=== PATIENT | female | born 1935 | race Caucasian/White ===

== ENCOUNTER → 2016-12-30 | Day surgery (SDC) | payer MEDICARE ==
[~2016-12-30] MED LIST: ALLO300T PO; BUPIVAC MPF-EPI 0.5%-1:200000 30 ML VIAL. ONE; CA C1TAB28 PO; DEXAMETHASONE SOD PHOS 20 MG/5 ML VIAL. ONE; FURO20TA3 PO; HYDR-971 PO; HYDROmorphone 2 MG/ML VIAL IV PRN; Hydrocodone/Acetaminophen PO; IV RINGERS,LACTATED 1000ML 1,000 ML IV SCH; LIDOCAINE 1% PF 2 ML VIAL. ID PRN; LIDOCAINE 1%/EPI 1:100,000 20 ML VIAL. ONE; LIDOCAINE 2% PF Vial for OR 5 ML VIAL. ONE; LISI10TA2 PO; MAGN1TAB PO; METO50TA2 PO; MORPHINE SULFATE 4 MG/ML DISP.SYRIN. IV PRN; MULT-658 PO; OMEG500C PO; OMEP40CA5 PO; ONDANSETRON PF 4 MG/2 ML VIAL. IV PRN; ONDANSETRON PF 4 MG/2 ML VIAL. ONE; OS CAL; PROCHLORPERAZINE 10 MG/2 ML VIAL. IV PRN; PROPOFOL 20 ML IV ONE; RANI75TA95 PO; SUCR1TAB PO; VITAMIN B 12; [UNRECOGNIZED DRUG - OTHER] PO; fentaNYL PF VIAL 100 MCG/2 ML VIAL IV PRN; fentaNYL PF VIAL 100 MCG/2 ML VIAL ONE
--- NOTE | 2016-12-30 11:42 | PDOC4 ---
Operative Note Operative Note Operative Note: Preoperative Diagnosis: Left breast mass Postoperative Diagnosis: Same Procedure: Left breast biopsy Surgeon: Sonu Anesthesia: Local MAC EBL: 10 mL Specimen: Left breast biopsy to pathology Drains: None Complications: None Indication: The patient is an 81-year-old female who was referred for an abnormality noted in her left breast. Physical examination identifies a thickened area with apparent involvement of the skin in the lateral upper quadrant. However no clear target is identified radiographically and therefore a radiographic core needle biopsy could not be performed. Due to the palpable abnormality we plan for a surgical left breast biopsy. The details of surgery were discussed with the patient. The risks include bleeding, infection, pain, scar tissue, potential need for additional surgery or procedure. She understands and would like to proceed. Description: The patient was taken to the operating room and placed supine on the operating table. Monitored anesthesia care was provided. The left breast was prepped with ChloraPrep and draped in a standard surgical manner. The area in question was located in the lateral aspect of the breast near the 2 to 3 o' clock position fairly close to the axilla. The involved skin was infiltrated with 1% lidocaine with epinephrine. An elliptical incision was made including a portion of the skin with a 15 blade scalpel. Sharp dissection was carried down into the breast parenchyma. A leather goods sales representative portion of the involved tissue was mobilized from the surrounding tissue with sharp dissection. The biopsy specimen was fully excised and sent to pathology for evaluation. Several small bleeding points were controlled with cautery. Hemostasis was then good. The skin was closed with a 4-0 Monocryl suture. A sterile OpSite dressing was then applied. The patient tolerated the procedure well and was sent to the recovery room in stable condition. At the end of the case all counts were correct. FABIAN PASCUAL MD Dec 30, 2016 11:42
--- NOTE | 2016-12-30 11:44 | DISCH ---
DISCHARGE INSTRUCTIONS Condition on Discharge Condition on Discharge: Stable Activity After Discharge Activity Instructions for Disc: Resume previous activity, Other, see below Diet after Discharge Diet after Discharge: Regular Wound Incision Care Wound/Incision Care: Other, see below (keep dressing clean and dry) Follow-Up Follow up with: Dr Pascual in 1 week in office, call for appt [phone] FABIAN PASCUAL MD Dec 30, 2016 11:44
[2016-12-30 12:20] VITALS: BP 120/52
--- NOTE | 2017-01-01 10:14 | PATHOLOGY ---
PATHOLOGY REPORT * * * * * * * * FINAL DIAGNOSIS: Skin and subcutaneous tissue, left breast biopsy: - INVASIVE LOBULAR CARCINOMA. SEE COMMENT. - TUMOR INVOLVEMENT OF DEEP AND SIDE MARGINS OF BIOPSY. - TUMOR INVASION OF DEEP AND MID DERMIS OF OVERLYING SKIN. COMMENT: Sections of the left breast biopsy reveal skin and subcutaneous tissue. There is extensive infiltrating carcinoma involving the subcutaneous tissue. The tumor cells are relatively small, and are arranged in cords which infiltrate the fibrous stroma and adipose tissue. The tumor cells have scanty amounts of pale cytoplasm, and possess rounded to ovoid mildly pleomorphic hyperchromatic nuclei containing small nucleoli. Some of the tumor cells have a signet-ring cell appearance. The tumor focally infiltrates the deep and mid dermis of the overlying skin. There is no lymphovascular tumor invasion or tumor involvement of skin lymphatics. The morphologic findings are supportive of the diagnosis of an invasive lobular carcinoma with involvement of skin. Breast prognostic studies will be obtained, the results of which will be reported separately. The case is also examined by Dr. Srikanth Lea, who concurs with the diagnosis. The results are telephoned to Dr. Ascencio on 01/01/17 at 9:30 am. (JPM:; 12/31/2016) REPORT ELECTRONICALLY SIGNED BY: Greg Bueno M.D. DATE/TIME: 01/01/2017 10:13 * * * * * * * * GROSS PATHOLOGY: The specimen is received in formalin, labeled "Jose Crews and left breast biopsy", is an un-oriented roughly elliptical greco-white skin 2.8 x 0.7cm with underlying attached yellow lobulated fibroadipose tissue 1.8 x 1.7 x 1.0 cm. The margins are inked black, serially sectioned into 8 pieces to show predominantly a yellow lobulated cut surface with a 0.6 x 0.5 x 0.3 cm hemorrhagic area abutting the inked. Entirely submitted in four cassettes. A1-3: Central portion of specimen and A4 tips. Time surgically removed:111 on 12/30/16, time placed in formalin:1110 on 12/30/16, time of fixation: 10 hours 40 minutes. (SWS; 12/30/2016) INITIAL CPT CODE(S): A; 15780, 03837(4) Professional services performed by [facility] at [place] [id number] Technical services performed by [facility] at [address] [place] [address], [address], [place] [address]. SPECIMEN(S) RECEIVED: A.Left breast biopsy CLINICAL HISTORY: Left breast mass PATIENT: JOSE CREWS /AGE: 910/18/1935 (Age: 81) PATIENT #: [id number] ALT CASE #: SPECIMEN COLLECTION DATE: 12/30/2016 SPECIMEN RECEIVED DATE: 12/30/2016 [facility] - [address] [place] [address] - PHONE: [phone] * * * END OF REPORT * * *
== END | disposition home or self-care (01) ==
LOC: SURG 09:13
PROVIDERS: ATTEND Surgery
DX: N63.22 Unspecified lump in the left breast, upper inner quadrant (principal); I10 Essential (primary) hypertension; K21.9 Gastro-esophageal reflux disease without esophagitis; Z90.710 Acquired absence of both cervix and uterus; Z86.69 Personal history of other diseases of the nervous system and sense organs; Z88.0 Allergy status to penicillin; Z88.2 Allergy status to sulfonamides; Z91.011 Allergy to milk products
CPT/HCPCS: 19120; C1769; J0690; J1100; J2704; J3010; J3490; J2405; J2001

== ENCOUNTER 2017-01-22 08:56 | Observation (INO) | payer MEDICARE ==
[~2017-01-22] VITALS: Ht 175.3 cm; Wt 73.5 kg
[2017-01-22] VITALS (12 sets, daily range): BP systolic 105–144; BP diastolic 51–68
[~2017-01-22 08:56] MED LIST changes: -BUPIVAC MPF-EPI 0.5%-1:200000 30 ML VIAL. ONE; -DEXAMETHASONE SOD PHOS 20 MG/5 ML VIAL. ONE; -LIDOCAINE 1%/EPI 1:100,000 20 ML VIAL. ONE; -LIDOCAINE 2% PF Vial for OR 5 ML VIAL. ONE; -METO50TA2 PO; +METO50TA6 PO; +MORPHINE SULFATE 2 MG/ML DISP.SYRIN. IV PRN; -MORPHINE SULFATE 4 MG/ML DISP.SYRIN. IV PRN; -ONDANSETRON PF 4 MG/2 ML VIAL. ONE; -PROPOFOL 20 ML IV ONE; -fentaNYL PF VIAL 100 MCG/2 ML VIAL ONE
[2017-01-22] MEDS ORDERED: LIDOCAINE 2% PF Vial for OR 5 ML VIAL. ONE (09:11)
[2017-01-22] MEDS ORDERED: DEXAMETHASONE SOD PHOS 20 MG/5 ML VIAL. ONE (09:11)
[2017-01-22] MEDS ORDERED: ONDANSETRON PF 4 MG/2 ML VIAL. ONE (09:11)
[2017-01-22] MEDS ORDERED: PROPOFOL 20 ML IV ONE (09:11)
[2017-01-22] MEDS ORDERED: fentaNYL PF VIAL 100 MCG/2 ML VIAL ONE (09:11)
[2017-01-22] MEDS ORDERED: LIDOCAINE 1% / SOD BICARB 8.4% 20 ML VIAL. IJ ONE (09:15)
[2017-01-22] MEDS: IV RINGERS,LACTATED 1000ML 1,000 ML IV SCH ×2 (09:29→17:29)
[2017-01-22] MEDS ORDERED: LIDOCAINE 1% PF 2 ML VIAL. ID PRN (09:30)
[2017-01-22] MEDS ORDERED: fentaNYL PF VIAL 100 MCG/2 ML VIAL IV PRN ×2 (09:30)
[2017-01-22] MEDS ORDERED: MIDAZOLAM HCL/PF 2 MG/2 ML VIAL. IV PRN (09:30)
[2017-01-22] MEDS ORDERED: ISOSULFAN BLUE 50 MG/5 ML VIAL. SQ ONE (10:44)
[2017-01-22] MEDS ORDERED: ePHEDrine PF IN SALINE 50 MG/5 ML DISP.SYRIN IV ONE (11:35)
[2017-01-22] MEDS ORDERED: SEVOFLURANE > 120 MINUTES. IH ONE (12:05)
--- NOTE | 2017-01-22 12:30 | RAD ---
Indication: Left breast cancer. Procedure: Procedure was discussed with the patient. All questions were answered. Written consent to proceed was obtained. Timeout procedure was performed. Patient was prepped and draped in the usual manner. 4 periareolar dermal injections of filtered sulfur colloid mixed with buffered lidocaine were injected. Total dose of the 4 injections was 1 mCi. Patient was transferred to the operative suite prior to any imaging. Lymphoscintigraphy was for surgical planning purposes. Impression: Lymphoscintigraphy performed without complication.
[2017-01-22] MEDS: IV 1/2 NORMAL SALINE 1,000 ML IV SCH (13:12)
[2017-01-22] MEDS ORDERED: HYDROmorphone 2 MG/ML VIAL IV PRN (13:15)
[2017-01-22] MEDS ORDERED: ONDANSETRON PF 4 MG/2 ML VIAL. IV PRN (13:15)
[2017-01-22] MEDS ORDERED: HYDROcodone/APAP 5/325MG 1 TAB TABLET PO PRN ×2 (13:15)
[2017-01-22] MEDS ORDERED: 0.9 % SODIUM CHLORIDE 10 ML DISP.SYRIN. IV PRN (13:15)
--- NOTE | 2017-01-22 13:21 | PDOC4 ---
Operative Note Operative Note Operative Note: Preoperative Diagnosis: Left breast cancer Postoperative Diagnosis: Same Procedure: Left simple mastectomy with sentinel lymph node biopsy Surgeon: Sonu Wood Boring Machine Operator: Ewelina VARELA Anesthesia: Gen. EBL: 50 mL Specimen: Left sentinel lymph nodes 1 through 3 to pathology, left breast stitch at 12:00 to pathology Drains: 19 Khmer round Abhijeet drain to chest wall Complications: None Indication: The patient is an 81-year-old female who is referred due to a left breast mass. A biopsy confirmed invasive adenocarcinoma. In discussing surgical treatment the patient strongly prefers a complete mastectomy and has no desire for breast conservation. We plan to include a sentinel lymph node biopsy with this as well and she is aware of the possibility of needing an axillary dissection. The risks of surgery were discussed which include bleeding , infection, pain, scar tissue, wound healing problems, anesthetic risk, potential need for additional surgery or procedure. She understands and would like to proceed. Description: The patient was taken to the operating room and placed supine on the operating table. Gen. anesthesia was performed. The left breast and axilla were prepped with ChloraPrep and draped in a standard surgical manner. 5 mL of Lymphazurin were injected deep to the nipple areolar complex. Several minutes were allowed to elapse. An elliptical tracing was made with a marker around the nipple areolar complex extending from the medial chest to the axilla. The superior lateral aspect of this marking was then opened with a scalpel. Cautery dissection was carried down in the axilla. There was initially 2 areas of marked increased nuclear uptake both corresponding to blue staining lymph nodes thereby representing sentinel nodes. Both were readily harvested and sent to pathology for evaluation. There was one additional area of increased nuclear uptake somewhat more superiorly. This was also readily identified and corresponded to a node that did not stain blue. This was also harvested and sent as a sentinel lymph node. Apart from some background activity there were no other areas of marked increased nuclear uptake. There were no other blue staining nodes and no abnormal palpable lymphadenopathy. Frozen section evaluation of all nodes was negative for metastasis. The incision was then completed with a scalpel along the previous marking. Cautery dissection was used to develop both the superior and inferior skin flaps. The superior flap was developed first freeing the skin from the deeper breast parenchyma. This was carried to the level just below the clavicle. In a similar manner the inferior flap was mobilized which included the inframammary fold. In a medial to lateral fashion the breast was taken off of the chest wall with cautery. Several small blood vessels were readily controlled with cautery and a few larger vessels were ligated with 2-0 Vicryl. The breast was then completely excised and a stitch was used to rachele the 12 o'clock position. The specimen was sent to pathology. A few remaining bleeding spots were controlled with cautery. Hemostasis was then good and no other gross abnormalities were seen. A 19 Khmer round Abhijeet drain was left in the chest wall with an exit site fairly. This was secured to the skin with 2-0 silk. The subcutaneous tissue was closed with interrupted 3-0 Vicryl. The skin was then approximated with a 4-0 Monocryl suture. A sterile OpSite dressing was then applied. The patient tolerated the procedure well and was sent to the recovery room in stable condition. At the end of the case all counts were correct. FABIAN PASCUAL MD Jan 22, 2017 13:21
[2017-01-22] MEDS: LISINOPRIL 10 MG TABLET PO SCH (14:00)
[2017-01-22] MEDS: ALLOPURINOL 300 MG TABLET. PO SCH (14:00)
[2017-01-22] MEDS: fentaNYL PF VIAL 100 MCG/2 ML VIAL IV PRN ×2 (14:03→14:08)
[2017-01-22] MEDS: PANTOPRAZOLE 40 MG TABLET.DR. PO SCH (16:30)
[2017-01-23 03:00] VITALS: BP 103/49
[2017-01-23] MEDS: IV 1/2 NORMAL SALINE 1,000 ML IV SCH (03:27)
[2017-01-23 07:00] VITALS: BP 114/53
[2017-01-23] MEDS: ALLOPURINOL 300 MG TABLET. PO SCH (08:51)
[2017-01-23] MEDS: PANTOPRAZOLE 40 MG TABLET.DR. PO SCH (08:51)
[2017-01-23] MEDS: LISINOPRIL 10 MG TABLET PO SCH (08:52)
[2017-01-23 11:00] VITALS: BP 120/49
--- NOTE | 2017-01-23 11:22 | PDOC ---
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
--- NOTE | 2017-01-24 13:31 | PDOC3 ---
Discharge Summary Visit Information Date of Admission: Jan 22, 2017 Date of Discharge: Jan 23, 2017 Admitting Diagnosis: Left breast cancer Final Diagnosis Left breast cancer Brief Hospital Course Allergies Allergies Coded Allergies Type Severity Reaction Last Updated Verified Sulfa (Sulfonamide Antibiotics) Allergy Intermediate Rash 01/22/17 Yes milk Adverse Reaction Intermediate UPSET STOMACH 01/22/17 Yes Vital Signs Vital Signs Date Time Temp Pulse Resp B/P (MAP) Pulse Ox O2 Delivery O2 Flow Rate FiO2 01/23/17 11:00 97.5 75 16 120/49 (72) 96 Room Air 97.5 Brief Hospital Course Ms. Crews is a 81 old female who presented with left breast cancer and underwent Left simple mastectomy with sentinel lymph node biopsy. Postoperatively her pain was controlled, she was ambulating, and tolerating a diet. She is ready for discharge home. Discharge Information Condition at Discharge: Stable Follow Up: Weeks (1) Disposition/Orders: D/C to Home Scheduled Allopurinol (Allopurinol), 300 MG PO DAILY, (Reported) Lisinopril (Lisinopril), 1 TAB PO DAILY, (Reported) Multivits-Min/Fa/Lycopene/Lut (Centrum Silver Tablet), 1 EACH PO DAILY, ( Reported) Omeprazole (Omeprazole), 1 CAP PO DAILY, (Reported) [Os Jim], DAILY, (Reported) [Vitamin B 12], DAILY, (Reported) [vitamin eye health], 1 TAB PO DAILY, (Reported) Scheduled PRN Hydrocodone/Apap 5-325 (Thorp 5-325 Tablet), 1 TAB PO PRN Q6HRS PRN for PAIN, ( Reported) Miscellaneous Medications Ca Cmb No.1/Vit D3/B-6/Fa/B12 (Vitamin D3 1,000 Unit Tablet), 1 EACH PO, ( Reported) Stella-3 Fatty Acids (Fish Oil), 500 MG PO, (Reported) 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
--- NOTE | 2017-01-27 14:24 | PATHOLOGY ---
PATHOLOGY REPORT * * * * * * * * FINAL DIAGNOSIS: A. Lymph node, sentinel lymph node #1: - Negative for tumor (0/1). B. Lymph node, sentinel lymph node #2: - Negative for tumor (0/1). C. Lymph node, sentinel lymph node #3: - Rare isolated tumor cell identified. D. Breast and focal attached skeletal muscle tissue, left mastectomy: - INVASIVE LOBULAR CARCINOMA, FORMING AN ILL DEFINED WIDELY INFILTATIVE TUMOR MASS INVOLVING THE WALL OF THE PREVIOUS BIOPSY SITE, OUTER BREAST, 6:00 REGION OF BREAST, SUBAREOLAR BREAST, AND UPPER INNER QUADRANT. SEE COMMENT AND SYNOPTIC REPORT. - Focal tumor infiltration of attached skeletal muscle tissue. - Focal tumor involvement of deep margin adjacent to skeletal muscle tissue. - Focal tumor involvement of anterior-inferior margin. - Focal tumor involvement of skin overlying previous biopsy site. - Single intramammary lymph node of upper outer quadrant negative for tumor (0/1). - FOCAL LOBULAR CARCINOMA IN SITU AND ATYPICAL DUCTAL EPITHELIAL HYPERPLASIA. - Fibrocystic changes. CLINICAL Clinical History: Other: Breast mass Radiologic Finding: Mass or architectural distortion SPECIMEN Procedure: Total mastectomy (including nipple and skin) Lymph Node Sampling: [place] lymph node(s) Lymph nodes present within the breast specimen (i.e., intramammary lymph nodes) Specimen Laterality: Left TUMOR Primary Tumor Site: Invasive Carcinoma: Upper outer quadrant Lower outer quadrant Upper inner quadrant Central Presence of Invasive Carcinoma: Histologic Type: Invasive lobular carcinoma Histologic Grade ([place] Histologic Score): Glandular (Acinar) / Tubular Differentiation: Score 3 (< 10% of tumor area forming glandular / tubular structures) Nuclear Pleomorphism: Score 2 (Cells larger than normal with open vesicular nuclei, visible nucleoli, and moderate variability in both size and shape) Mitotic Rate: Score 1 (<=3 mitoses per mm2) Overall Grade: Grade 2 (scores of 6 or 7) Ductal Carcinoma In Situ (DCIS): No DCIS is present Lobular Carcinoma In Situ (LCIS): Present Tumor Size: Size of Largest Invasive Carcinoma: Cannot be determined: At least 65mm. Tumor Focality: Cannot be determined: Widely infiltrative tumor. Tumor Extent Macroscopic and Microscopic Extent of Tumor Skin: Skin Invasion: Invasive carcinoma directly invades into the dermis or epidermis without skin ulceration (this does not change the T stage) Skeletal Muscle: Carcinoma invades skeletal muscle Accessory Tumor Findings Lymph-Vascular Invasion: Not identified Dermal Lymph-Vascular Invasion: Not identified Microcalcifications: Not identified Treatment Effect: Response to Presurgical (Neoadjuvant) Therapy: No known presurgical therapy MARGINS Invasive Carcinoma: Margin(s) positive for invasive carcinoma Specify Margin(s): Posterior Focal Other (specify margin): Anterior-inferior. Focal Ductal Carcinoma In Situ (DCIS): DCIS not present in specimen LYMPH NODES Regional Lymph Nodes: [place] lymph node biopsy performed Number of [place] Nodes Examined: Specify number: 3 Method of Evaluation of [place] Lymph Node(s): H-E, multiple levels Immunohistochemistry Number of Lymph Node(s) Examined (sentinel and nonsentinel): Specify number: 4 Lymph Node Involvement: Number of Lymph Nodes with Macrometastases (> 2 mm): Specify number: 0 Number of Lymph Nodes with Micrometastases (> 0.2 mm to 2 mm and / or > 200 cells): Specify number: 0 Number of Lymph Nodes with Isolated Tumor Cells (<= 0.2 mm and <= 200 cells): Specify number: 1 Size of Largest Tumor Deposit: Cannot be determined: . Extranodal Extension: Not identified STAGE (PTNM) Primary Tumor (Invasive Carcinoma) (pT): pT3: Tumor > 50 mm in greatest dimension Category (pN): pN0 (i+): Malignant cells in regional lymph node(s) no greater than 0.2 mm and no more than 200 cells (detected by H-E or IHC including ITC) ADDITIONAL FINDINGS Additional Pathologic Findings: See diagnoses. COMMENT: Sections of the left mastectomy reveal an ill defined, widely infiltrative invasive lobular carcinoma involving the wall of the previous biopsy site, outer breast, 6:00 region of breast, subareolar breast, and upper inner quadrant. The tumor does not form a well defined mass. There appears to be contiguous tumor involvement between the wall of the previous biopsy site and the 6:00 region of the breast, such that the tumor measures at least 6.5 cm in greatest dimension. There is focal tumor infiltration of skeletal muscle tissue attached to the posterior deep margin. There is focal tumor involvement of the deep margin adjacent to the attached skeletal muscle tissue. There is focal tumor infiltration of the skin overlying the previous biopsy site, and there is focal tumor involvement of the anterior-inferior margin. There is a single intramammary lymph node within the upper outer breast which appears negative for tumor. There are total of 3 sentinel lymph nodes examined. An AE1/AE3 stain is obtained on each sentinel lymph node and reveals the following: AE1/AE3 (A1): negative for tumor AE1/AE3 (B1): negative for tumor AE1/AE3 (C1): rare isolated tumor cell identified (JPM:rlm; 01/24/2017) Special stains performed: 8183 on A1, B1 and C1 REPORT ELECTRONICALLY SIGNED BY: Greg Bueno M.D. DATE/TIME: 01/27/2017 14:22 * * * * * * * * GROSS PATHOLOGY: A. The specimen is received fresh for intraoperative consultation and is designated "lymph node". This consists of a pink-greco lymph node with attached yellow fatty appearing tissue, measuring up to 2.5 cm in length and 1.5 cm in diameter. The specimen is bisected. Sectioning reveals a pinkish greco to pinkish michelle lymph node measuring up to 1.8 cm in greatest dimension. There is no gross evidence of tumor replacement. This is submitted for frozen section as FSA1. The tissue remaining from frozen section is submitted for permanent sections as A1. B. The specimen is received fresh for intraoperative consultation and is designated "lymph node". This consists of a segment of yellowish fatty appearing tissue showing blue-green discoloration, measuring up to 1.8 cm in greatest dimension. The specimen is bisected. Sectioning reveals a pink-greco lymph node measuring up to 1.4 cm in greatest dimension showing focal greenish discoloration. There is no gross evidence of tumor replacement. This is submitted for frozen section as FSB1. The tissue remaining from frozen section is submitted for permanent sections as B1. C. The specimen is received fresh for intraoperative consultation and is designated "lymph node". This consists of a segment of yellow-red fatty appearing tissue measuring up to 2.3 cm in greatest dimension. Sectioning reveals an eccentrically located yellow-greco lymph node measuring approximately 1.1 cm in greatest dimension. This shows no gross evidence of tumor replacement. This is submitted for frozen section as FSC1. The tissue remaining from frozen section is submitted for permanent sections as C1. (JPM:denae; 01/22/2017) D. Received in formalin labeled "Jose Crews, left breast" and consists of a 739 g simple mastectomy specimen oriented with a suture at 12:00. The breast tissue measures 26 cm L-M, 23 cm S-I, and a 4.5 cm A-P. The anterior skin ellipse measures 25.0 x 12.0 cm. An everted nipple measures 1.2 cm diameter. There is blue dye present on skin surface measuring up to 8 cm in greatest dimension. There is a well healed incision of the lateral skin that extends in the 3-9:00 plane and measures 5 cm in linear length. The scar clears all margins by 1 cm or greater. No other skin lesions are identified. The deep margin is intact. There is prominent skeletal muscle identified that measures 3.0 x 1.1 x 0.9 cm. The margins are inked as follows posterior black, skeletal muscle over inked yellow, anterosuperior blue, and anteroinferior green. Sectioning reveals a biopsy cavity deep to the well healed skin incision. The previous biopsy site measures approximately 2.7 x 2.5 x 1.8 cm. The cavity demonstrates the following measurements to margins: Anterior 0.3 cm, posterior 2.0 cm, inferior 3.0 cm, superior 4.1 cm, lateral/medial 5.0 cm or greater. There is no obvious residual tumor identified. There is fat necrosis and fibrosis surrounding the cavity. There is a firm, somewhat stellate, and solid mass identified at approximately the 6 o'clock position and measuring 1.8 x 1.5 x 1.2 cm. The biopsy cavity and mass are by a distance of 6.5 cm. The mass extends to within 0.3 cm of the nearest anteroinferior margin and clears all other margins by 2.0 cm or greater. The remaining breast parenchyma shows approximately 35% white stroma and 55% adipose tissue. There are no other masses or lesions identified. [place] sections are submitted D1-D21. D1 nipple D2 anterosuperior and anteroinferior cutaneous margins D3 anterosuperior and anteroinferior cutaneous margins nearest well healed incision D4 well healed incision D5-B6 biopsy cavity D7 parenchyma medial to biopsy cavity D8-D10 mass D 11-D14 parenchyma between biopsy cavity and mass submitted lateral-medial D 15 deep margin nearest biopsy cavity D 16 deep margin nearest mass D 17 deep margin with attached skeletal muscle D 18 upper outer quadrant D19 lower outer quadrant D 20 upper inner quadrant D 21 lower inner quadrant (GABRIELA; 01/23/2017) FROZEN SECTION DIAGNOSIS: INTRAOPERATIVE CONSULTATION WITH FROZEN SECTION: (Greg uBeno; 01/22/2017) A. Lymph node #1: - Negative for tumor. The results are reported to Dr. Ascencio in the operating room. B. Lymph node #2: - Negative for tumor. The results are reported to Dr. Ascencio in the operating room. C. Lymph node #3: - Negative for tumor. The results are reported to Dr. Ascencio in the operating room. Testing performed by [facility] [place] [address] (JPM:denae; 01/22/2017) INITIAL CPT CODE(S): A; 98806, 53217, 13771 B; 36186, 29097, 42817 C; 58753, 94503, 54289 D; 78311 Professional services performed by [facility] [place] [place] [address] Technical services performed by [facility] at [address] [place] [address], [facility] [address] [place] [address]. SPECIMEN(S) RECEIVED: A.Lymph node B.Lymph node C.Lymph node D.Left breast CLINICAL HISTORY: [facility] PATIENT: JOSE CREWS /AGE: 910/18/1935 (Age: 81) PATIENT #: [id number] ALT CASE #: SPECIMEN COLLECTION DATE: 01/22/2017 SPECIMEN RECEIVED DATE: 01/22/2017 [facility] - [address] [place] [address] - PHONE: [phone] * * * END OF REPORT * * *
== END 2017-01-23 14:35 | disposition home or self-care (01) ==
LOC: NM 08:56 → 4 NORTH 13:12
PROVIDERS: ADMIT Surgery; ATTEND Surgery
DX: C50.912 Malignant neoplasm of unspecified site of left female breast (principal)
CPT/HCPCS: 19301; 38525; 38792; 97161; 97165; A9541; C1769; G0378; G0379; J0690; J1100; J1170; J2704; J3010; Q9968; 88307; 88331; 88342; 96374; J2405; J7120; J2001

== ENCOUNTER → 2017-04-04 | Outpatient (CLI) | payer MEDICARE | END | disposition home or self-care (01) | LOC: KCIC DEXA 10:37 | DX: Z13.820 Encounter for screening for osteoporosis (principal); C50.919 Malignant neoplasm of unspecified site of unspecified female breast; M81.0 Age-related osteoporosis without current pathological fracture; M85.88 Other specified disorders of bone density and structure, other site; Z78.0 Asymptomatic menopausal state | CPT/HCPCS: 77080 ==